=== PATIENT | female | born 1950 | race Caucasian/White ===

== ENCOUNTER 2016-09-28 11:13 | Emergency (ER) | payer OTHER ==
--- NOTE | 2016-09-28 11:18 | EDPHY ---
H & P HPI/ROS: CHIEF COMPLAINT: Dizziness, vomiting HISTORY OF PRESENT ILLNESS: The patient is a 66 y/o female, with a history of diabetes, arriving via EMS complaining of persistent dizziness since arriving from [place] a few days ago and acute onset vomiting about 30 minutes ago. She felt tired upon waking this morning and began feeling dizzy while sitting at a conference. She describes her dizziness as "fuzzy" and "lightheaded" with onset of a room-spinning sensation just before EMS arrived. She walked to the bathroom , felt intense spinning and began vomiting. She denies falling or syncope. She continued to vomit an additional 4 times while en route to the ED. She complains of associated general weakness and abdominal bloating. She attributes her bloating to eating wheat today. Her prehospital BGL was 186. Her dizziness is no longer present upon assessment, but is replicable when moving her eyes to the left. She has not vomited since receiving Zofran. She denies weakness, numbness, severe headache, or fever. REVIEW OF SYSTEMS: Constitutional: see HPI Eyes: No visual changes ENT: No sore throat Respiratory: No cough, no shortness of breath Cardiac: No chest pain Gastrointestinal: see HPI Genitourinary: No hematuria, no dysuria Musculoskeletal: No leg pain or swelling Skin: No rash Neurological: see HPI Psychiatric: No depression - Medical/Surgical History PMH: PMH includes: 1. Diabetes - metformin 2. Asthma 3. Cholecystectomy 4. Hysterectomy - Social History Additional Social History: Visiting from [place] for a conference. Friend at bedside. - Physical Exam Exam: General Appearance: Alert, no distress Eyes: Pupils equal and round, no conjunctival pallor or injection ENT, Mouth: Mucous membranes moist Neck: Normal inspection Respiratory: Lungs are clear to auscultation Cardiovascular: Regular rate and rhythm Gastrointestinal: Abdomen is soft and non- tender Neurological: Alert, oriented x3, cranial nerves II through XII intact, motor 5/ 5, sensory intact to light touch, left-sided nystagmus Skin: Warm and diaphoretic, no rash Extremities: Nontender, no pedal edema Psychiatric: Flat affect Constitutional: Initial Vital Signs Temperature (C) 36.3 C 09/28/16 11:18 Heart Rate 94 09/28/16 11:18 Respiratory Rate 18 09/28/16 11:18 Blood Pressure 125/86 H 09/28/16 11:18 O2 Sat (%) 93 09/28/16 11:18 O2 Delivery Mode Room Air Allergies/Adverse Reactions: No Known Allergies Allergy (Unverified 09/28/16 11:17) Home Medications: Medication Instructions Recorded Meclizine HCl [Meclizine HCl 25 mg 25 mg PO TID PRN #15 tab 09/28/16 (RX,OTC)] Metformin HCl 09/28/16 Proventil 09/28/16 Wellbutrin 100mg (*) 09/28/16 Medical Decision Making ED Course/Re-evaluation: This is a 66 y/o female with a history of diabetes complaining of dizziness since arriving in [place] from [place] a few days ago and acute onset nausea and vomiting about 30 minutes prior to arrival. She has not experienced these symptoms previously. Her dizziness is replicable by turning her head or eyes to the side , particularly to the left. She has horizontal nystagmus to the left on exam, which is consistent with positional vertigo. Neurologic exam is normal and I do not suspect a central etiology for her vertigo. Vomiting is currently controlled with Zofran. An IV was established by EMS. Plan for basic labs, EKG, and 25mg PO Meclizine for presumed vertigo. 1L IV NS administered. The 12 lead EKG was interpreted by myself. Sinus rhythm rate 90. See hard copy and/or "tracemaster" electronic copy for interpretation. 1258: Reassessed patient. She is feeling significantly improved and is able to walk without dizziness. She has had no further episodes of vomiting here. She feels ready to go home. She will be discharged with a script for Meclizine and standard vertigo care instructions. She's been referred to a local ENT if needed for ongoing symptoms. Return precautions given. She is comfortable with this plan. Differential Diagnosis: Differential diagnosis includes TIA, stroke, intracranial hemorrhage, tumor, electrolyte abnormality and acute labyrinthitis. - Data Points Laboratory Results: Laboratory Results 09/28/16 11:32 09/28/16 11:32 Medications Given: Discontinued Medications Sodium Chloride (Ns) 1,000 mls @ 0 mls/hr IV ONCE ONE; Wide Open PRN Reason: Protocol Stop: 09/28/16 11:21 Last Admin: 09/28/16 11:32 Dose: 1,000 mls Meclizine HCl (Meclizine Hcl) 25 mg PO EDNOW ONE Stop: 09/28/16 11:45 Last Admin: 09/28/16 11:49 Dose: 25 mg Departure - Departure Disposition: Home, Routine, Self-Care Clinical Impression: Positional vertigo Qualifiers: Laterality: left Qualified Code(s): H81.12 - Benign paroxysmal vertigo, left ear Nausea & vomiting Qualifiers: Vomiting type: unspecified Vomiting Intractability: non-intractable Qualified Code(s): R11.2 - Nausea with vomiting, unspecified Condition: Good Instructions: Meclizine (By mouth), Vertigo (ED) Additional Instructions: 1. Take Meclizine as prescribed for vertigo. This medication will make you sleepy and we do not recommend driving while using it. 2. Follow up with an ENT for unimproved symptoms over the next 1-2 days. You've been referred to Dr. Horne locally. 3. Return to the ED for severe headache, weakness or numbness on one side of your body, difficulty with speech, or other worsening of condition. Referrals: Wai Horne MD [Medical Doctor] - As per Instructions Prescriptions: Meclizine HCl [Meclizine HCl 25 mg (RX,OTC)] 25 mg PO TID PRN #15 tab PRN Reason: Dizziness Report Scribed for: Lucita Carrillo Report Scribed by: Ela Murcia Date of Report: 09/28/16 Time of Report: 11:18 Physician Review and Approval Statement: 09/28/16 11:18 Portions of this note were transcribed by a medical translator. I personally performed a history, physical exam, medical decision making, and confirmed accuracy of information the transcribed note.
[2016-09-28] MEDS ORDERED: NS 1,000 ML IV ONE (11:20)
[2016-09-28 11:40] LABS: % IMMATURE GRANULYOCYTES 0.4 % (0.0-1.1); ABSOLUTE IMMATURE GRANULOCYTES 0.04 10^3/uL (0.00-0.10); ADD DIFF? NO; ADD MORPH? NO; ADD SCAN? NO; ATYPICAL LYMPHOCYTE FLAG 0 (0-99); FRAGMENT RBC FLAG 0 (0-99); HEMOGLOBIN 14.6 g/dL (12.6-16.3); LEFT SHIFT FLG 0 (0-99); LIPEMIA HEMOLYSIS FLAG 90 (0-99); MEAN CELL HEMOGLOBIN 29.5 pg (27.9-34.1); MEAN CELL HEMOGLOBIN CONCENTR. 34.8 g/dL (32.4-36.7); MEAN CELL VOLUME 84.8 fL (81.5-99.8); MEAN PLATELET VOLUME 9.8 fL (8.7-11.7); PLATELET CLUMPS FLAG 10 (0-99); PLATELET COUNT 293 10^3/uL (150-400); RED BLOOD CELL COUNT 4.95 10^6/uL (4.18-5.33); RED CELL DISTRIBUTION WIDTH 12.8 % (11.5-15.2)
[2016-09-28] MEDS ORDERED: MECLIZINE HCL 25 MG TAB PO ONE (11:44)
--- NOTE | 2016-09-28 11:49 | CPEKG ---
Heart Rate: 90 RR Interval: 667 P-R Interval: 164 QRSD Interval: 90 QT Interval: 392 QTC Interval: 480 P [place]: 61 QRS [place]: 57 T Wave [place]: -47 EKG Severity - NORMAL ECG - EKG Impression: SINUS RHYTHM Electronically Signed By: Lucita Carrillo 28-Sep-2016 13:49:58
[2016-09-28 12:09] LABS: ANION GAP 13 mEq/L (8-16); CALCIUM 9.6 mg/dL (8.5-10.4); CARBON DIOXIDE 20 mEq/l (22-31); CHLORIDE 105 mEq/L (97-110); CREATININE 0.8 mg/dL (0.6-1.0); GLOMERULAR FILTRATION RATE > 60; GLUCOSE 162 mg/dL (70-100); POTASSIUM 4.1 mEq/L (3.5-5.2); SODIUM 138 mEq/L (134-144)
[2016-09-28 12:29] VITALS: O2SAT 94
[2016-09-28 13:18] VITALS: BP 136/80; PULSE 92; RESP 16; TEMP 97.9
== END 2016-09-28 13:18 | disposition home or self-care (01) ==
DX: H81.12 Benign paroxysmal vertigo, left ear (principal); R11.2 Nausea with vomiting, unspecified; E11.9 Type 2 diabetes mellitus without complications; J45.909 Unspecified asthma, uncomplicated; Z79.84 Long term (current) use of oral hypoglycemic drugs